=== PATIENT | male | born 1980 | race Caucasian/White ===

== ENCOUNTER 2022-10-25 16:24 | Emergency (ER) | payer MEDICAID ==
[~2022-10-25] VITALS: Ht 172.7 cm; Wt 74.8 kg
[2022-10-25 16:27] VITALS: BP 166/96
--- NOTE | 2022-10-25 16:43 | NUR ---
DR GRACE AT BEDSIDE.
--- NOTE | 2022-10-25 16:49 | NUR ---
X-RAY AT BEDSIDE.
[2022-10-25] MEDS ORDERED: KETOROLAC 30 MG/ML VIAL IM ONE (16:55)
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
--- NOTE | 2022-10-25 17:56 | NUR ---
POSTERIOR SHORT LEG AND STIRRUP APPLIED. + CMS. ROLLED WITH 2 KUSH WRAPS.
[2022-10-25 18:12] VITALS: BP 138/82
[2022-10-25] MEDS ORDERED: IBUP-2213 PO (18:22)
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
--- NOTE | 2022-10-25 19:06 | NUR ---
Patient discharged with v/s stable. Written and verbal after care instructions given and explained. Patient alert, oriented and verbalized understanding of instructions. Ambulatory with steady gait. All questions addressed prior to discharge. ID band removed. Patient advised to follow up with PMD. Rx of IBUPROFEN given. Opportunity to ask questions provided and answered.
--- NOTE | 2022-10-25 19:09 | NUR ---
The patient's care was reviewed and supervised by Damon 05 SERENITY, RN.
== END 2022-10-25 19:04 | disposition home or self-care (01) ==
LOC: MED 16:24
DX: S92.321A Displaced fracture of second metatarsal bone, right foot, initial encounter for closed fracture (principal); S92.331A Displaced fracture of third metatarsal bone, right foot, initial encounter for closed fracture; S92.341A Displaced fracture of fourth metatarsal bone, right foot, initial encounter for closed fracture; F17.200 Nicotine dependence, unspecified, uncomplicated; F15.90 Other stimulant use, unspecified, uncomplicated; Z79.899 Other long term (current) drug therapy; V23.49XA Other motorcycle driver injured in collision with car, pick-up truck or van in traffic accident, initial encounter; Y93.89 Activity, other specified; Y92.89 Other specified places as the place of occurrence of the external cause; Y99.8 Other external cause status
CPT/HCPCS: 29515; 73610; 73630; 96372; 99284; J1885; Q0092

== ENCOUNTER 2022-10-29 19:20 | Emergency (ER) | payer MEDICAID ==
[~2022-10-29] VITALS: Ht 177.8 cm; Wt 81.6 kg
[~2022-10-29 19:20] MED LIST: IBUP-2213 PO
[2022-10-29 19:24] VITALS: BP 145/92
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
--- NOTE | 2022-10-29 19:27 | NUR ---
pt offloaded to [facility]
--- NOTE | 2022-10-29 20:17 | NUR ---
PT TAKEN TO ROOM 6 VIA WHEELCHAIR
[2022-10-29] MEDS ORDERED: KETOROLAC 30 MG/ML VIAL IM ONE (20:55)
--- NOTE | 2022-10-29 20:55 | NUR ---
DR. SCHULER AT BEDSIDE FOR EXAM
[2022-10-29] MEDS ORDERED: ACET-10509 PO (20:57)
[2022-10-29] MEDS ORDERED: IBUP-2213 PO (20:57)
--- NOTE | 2022-10-29 21:08 | NUR ---
PT PROVIDED SANDWICH, WATER, JUICE AND CRACKERS.
--- NOTE | 2022-10-29 21:18 | NUR ---
Patient discharged with v/s stable. Written and verbal after care instructions given and explained. Patient alert, oriented and verbalized understanding of instructions. Ambulatory with steady gait. All questions addressed prior to discharge. ID band removed. Patient advised to follow up with PMD. Rx of ACETAMINOPHEN IBUPROFEN given.
== END 2022-10-29 21:18 | disposition home or self-care (01) ==
LOC: MED 19:20
DX: S92.301A Fracture of unspecified metatarsal bone(s), right foot, initial encounter for closed fracture (principal); Z79.899 Other long term (current) drug therapy; V03.90XA Pedestrian on foot injured in collision with car, pick-up truck or van, unspecified whether traffic or nontraffic accident, initial encounter; Y93.89 Activity, other specified; Y92.89 Other specified places as the place of occurrence of the external cause; Y99.8 Other external cause status
CPT/HCPCS: 29515; 96372; 99283; J1885